=== PATIENT | male | born 1940 | race Caucasian/White ===

== ENCOUNTER 2022-08-15 01:36 | Emergency (ER) | payer MEDICARE, OTHER ==
[~2022-08-15] VITALS: Ht 182.9 cm; Wt 87.1 kg
[2022-08-15 02:36] LABS: BASOPHILS ABSOLUTE AUTO 0.06 K/mm3 (0.00-0.23); BASOPHILS PERCENT AUTO 1 % (0-2); EOSINOPHILS ABSOLUTE AUTO 0.15 K/mm3 (0.00-0.68); EOSINOPHILS PERCENT AUTO 2 % (0-6); Hematocrit 39.4 % (37.0-53.0); Hemoglobin 13.7 g/dL (13.5-17.5); IMMATURE GRAN ABSOLUTE AUTO 0.08 K/mm3 (0.00-0.10); IMMATURE GRAN PERCENT AUTO 1 % (0-1); LYMPHOCYTES ABSOLUTE AUTO 1.32 K/mm3 (0.84-5.20); LYMPHOCYTES PERCENT AUTO 16 % (21-46); MONOCYTES ABSOLUTE AUTO 1.25 K/mm3 (0.16-1.47); MONOCYTES PERCENT AUTO 16 % (4-13); Mean Corpuscular HGB 30.8 pg (26.0-34.0); Mean Corpuscular HGB Conc 34.8 g/dL (31.5-36.5); Mean Corpuscular Volume 89 fL (80-100); Mean Platelet Volume 9.9 fL (9.1-12.4); NEUTROPHILS ABSOLUTE AUTO 5.18 K/mm3 (1.96-9.15); NEUTROPHILS PERCENT AUTO 65 % (41-73); Platelet Count 235 K/mm3 (150-400); RDW Coefficient Variation 13.3 % (11.7-14.2); RDW Standard Deviation 43.5 fL (35.1-46.3); Red Blood Cell Count 4.45 M/mm3 (4.30-5.90); White Blood Cell Count 8.04 K/mm3 (4.00-11.30)
[2022-08-15] MEDS ORDERED: AMLO5 PO (02:36)
[2022-08-15] MEDS ORDERED: DOXA2 PO (02:38)
[2022-08-15] MEDS ORDERED: ASPI81CH PO (02:38)
[2022-08-15] MEDS ORDERED: HYDCHL25 PO (02:39)
[2022-08-15] MEDS ORDERED: LEVOTHYROXINE137 M11 PO (02:39)
[2022-08-15] MEDS ORDERED: LOSA25 PO (02:39)
[2022-08-15] MEDS ORDERED: OMEP20ER PO (02:40)
[2022-08-15] MEDS ORDERED: PRESERVISION A1 EAC1 PO (02:41)
[2022-08-15] MEDS ORDERED: SERT50 PO (02:41)
[2022-08-15 04:28] LABS: Magnesium, Blood 2.4 mg/dL (1.6-2.4)
[2022-08-15 04:33] LABS: Albumin, Blood 3.5 g/dL (3.4-5.0); Albumin/Globulin Ratio 1.1 (0.8-1.8); Bilirubin, Total 0.2 mg/dL (0.1-1.0); Bun/Creatinine Ratio 26.7 (12.0-20.0); Calcium, Blood 8.7 mg/dL (8.5-10.1); Creatinine, Blood 0.86 mg/dL (0.60-1.20); Globulin, Blood 3.1 g/dL (2.2-4.0); Potassium, Blood 3.6 mmol/L (3.5-5.5); Thyroid Stimulating Hormone 5.31 uIU/mL (0.360-4.800); Total Protein, Blood 6.6 g/dL (6.4-8.2)
[2022-08-15 05:34] LABS: Free Thyroxine 1.26 ng/dL (0.70-1.60)
[2022-08-15] MEDS ORDERED: MECL25 PO (06:50)
== END 2022-08-15 07:12 | disposition home or self-care (01) ==
LOC: ER 01:36
PROVIDERS: Student in an Organized Health Care Education/Training Program
DX: R42 Dizziness and giddiness (principal); I10 Essential (primary) hypertension; E03.9 Hypothyroidism, unspecified; Z88.5 Allergy status to narcotic agent; Z79.82 Long term (current) use of aspirin; Z79.899 Other long term (current) drug therapy; Z79.890 Hormone replacement therapy
CPT/HCPCS: 70450; 80053; 83735; 84439; 84443; 85025; 93005; 93010; A9270